=== PATIENT | female | born 1965 | race Caucasian/White ===

== ENCOUNTER → 2016-05-14 | Day surgery (SDC) | payer BC, OTHER ==
[~2016-05-14] MED LIST: ALPRAZolam 0.25 MG TAB ONE; BACITRACIN OINT 1 EACH PACKET TOPICAL ONE; LIDOCAINE 1% INJ 10MG/ML (20 ML MDV) ONE; SODIUM BICARB 4% 5 ML VIAL (0.48 MEQ/ML) ONE
--- NOTE | 2016-05-14 09:11 | PCN ---
DATE OF PROCEDURE: The patient is a 50-year-old white female who presents with a mammographic abnormality in the left breast. The patient was taken to the stereotactic unit and the area of concern was localized. The breast was prepped using Betadine, 1% lidocaine was used to anesthetize the area of the skin. The needle was driven to correct coordinates. Multiple core biopsies were obtained. The marking clip was then left behind. The patient tolerated the procedure in stable condition. Specimen sent to pathology.
--- NOTE | 2016-05-14 09:35 | MM ---
EXAMINATION TYPE: MG stereo VAD BX LT DATE OF EXAM: 05/14/2016 8:53 AM COMPARISON: Outside mammograms April 16, 2016 and older studies CLINICAL HISTORY: Abnormal outside mammogram and ultrasound TECHNIQUE: Stereotactic guided core biopsy of left breast with clip placement and follow-up two-view mammogram. FINDINGS: The procedure of stereotactic guided core biopsy was explained to the patient. Benefits, alternatives, and risks were discussed. An informed consent was then obtained. [facility]. Shortness pathway was cranial approach. I performed the localization, then surgeon, Dr. Mckinnon performed the remainder of the procedure. A vacuum assisted biopsy gun was used to obtain multiple core samples. The patient tolerated the procedure well without any immediate complication. The patient was kept in the radiology department for short stay after the procedure and then discharged home in stable condition. Post biopsy mammogram shows the clip to appear in satisfactory position relative to the targeted area of concern persistent distortion on the preprocedure images. IMPRESSION: SUCCESSFUL, UNCOMPLICATED STEREOTACTIC GUIDED CORE BIOPSY OF AREA OF CONCERN IN THE LEFT BREAST, FULL PATHOLOGY RESULTS TO FOLLOW. Intermediate to high index of suspicion noted at time of procedure. It is noted nonsimple cyst on ultrasound report 12:00 position may not definitively correlate with area of mammogram concern, consider rescanning this level. 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 SEE SURGICAL PATHOLOGY CANCER CASE SUMMARY. Recommendation Surgical consult of the left breast. MTDD
== END | disposition home or self-care (01) ==
LOC: RADMAMWWP 07:10
PROVIDERS: ATTEND Surgery
DX: D05.12 Intraductal carcinoma in situ of left breast (principal); R92.1 Mammographic calcification found on diagnostic imaging of breast
CPT/HCPCS: 88305; 88342; 88341; 19081; A4648; J2001

== ENCOUNTER 2016-06-08 11:34 | Day surgery (SDC) | payer OTHER ==
[2016-06-04 11:45] VITALS: BMI 37.5
[~2016-06-08 11:34] MED LIST changes: -ALPRAZolam 0.25 MG TAB ONE; +ALPRAZolam 0.5 MG TAB PO PRN; -BACITRACIN OINT 1 EACH PACKET TOPICAL ONE; +DEXAMETHASONE SOD PHOSPHATE 10 MG/ML 1 ML VIAL IV ONE; +HEPARIN SODIUM,PORCINE 5,000 UNIT/ML 1 ML VIAL SQ ONE; +HYDROmorphone 1 MG/ML 1 ML SYRINGE IVP PRN; +LACTATED RINGERS 1,000 ML IV SCH; +LIDOCAINE 1% 20 ML VIAL (10MG/ML) FOR IV START INTRADERMA PRN; -LIDOCAINE 1% INJ 10MG/ML (20 ML MDV) ONE; +MIDAZOLAM 2 MG/2 ML VIAL IV PRN; +Pre Op ABX Message 1 EACH MISC MISCELLANE ONE; +SCOPOLAMINE 1.5MG/72HR PATCH TRANSDERM ONE; -SODIUM BICARB 4% 5 ML VIAL (0.48 MEQ/ML) ONE
[2016-06-08] MEDS ORDERED: SODIUM BICARB 4% 5 ML VIAL (0.48 MEQ/ML) MISCELLANE ONE (12:55)
[2016-06-08] MEDS ORDERED: LIDOCAINE 1% INJ 10MG/ML (20 ML MDV) SQ ONE ×2 (12:55→17:45)
[2016-06-08 13:26] VITALS: TEMP 98
--- NOTE | 2016-06-08 13:34 | NM ---
EXAMINATION TYPE: NM sentinel node injection DATE OF EXAM: 06/08/2016 1:27 PM COMPARISON: NONE HISTORY: Left breast cancer TECHNIQUE AND FINDINGS: The procedure of sentinel lymph node injection was explained to the patient. The benefits, alternatives, and risks were discussed. An informed consent was then obtained. Overlying skin is cleaned with sterile alcohol. Lidocaine buffered with bicarbonate was used as anes thetic into the skin and subcutaneous tissue surrounding the nipple. Following this, 549 uCi Tc 99m Filtered Sulfur Colloid was injected into 4 equivalent doses at 12, 3, 6, and 9:00 position surroundi ng the nipple intradermally. The injection sites were massaged by nuclear physics teacher for 10 minutes after injection. T he patient tolerated the procedure well without any immediate complication. The patient was kept in the radiology department for short stay after the procedure and then taken to surgery for surgical pr ocedure what is presumed intraoperative gamma probe will be used for sentinel lymph node detection. IMPRESSION: Left breast radiotracer injection for sentinel node localization as above.
[2016-06-08] MEDS: ONDANSETRON 4 MG/2 ML VIAL IVP ONE ×2 (14:39→19:32)
[2016-06-08] MEDS ORDERED: HEPARIN SODIUM,PORCINE 5,000 UNIT/ML 1 ML VIAL SQ ONE (15:21)
[2016-06-08] MEDS ORDERED: LIDOCAINE 1% INJ 10MG/ML (20 ML MDV) ONE ×2 (15:39→17:12)
[2016-06-08] MEDS ORDERED: GLYCOPYRROLATE 0.2 MG/ML 2 ML VIAL ONE ×2 (15:39→17:12)
[2016-06-08] MEDS ORDERED: fentaNYL (PF) 50 MCG/ML 2 ML AMP ONE ×2 (15:39→17:12)
[2016-06-08] MEDS ORDERED: SUCCINYLCHOLINE CHLORIDE 100 MG/5 ML SYR IV ONE (15:39)
[2016-06-08] MEDS ORDERED: PROPOFOL 10 MG/ML 20 ML VIAL IV ONE ×2 (15:39→17:12)
[2016-06-08] MEDS ORDERED: MIDAZOLAM 2 MG/2 ML VIAL ONE ×2 (15:39→17:12)
[2016-06-08] MEDS ORDERED: SUCCINYLCHOLINE CHLORIDE VIAL 200 MG/10 ML VIAL IV ONE (17:12)
[2016-06-08] MEDS ORDERED: NEOSTIGMINE 1 MG/ML 10 ML VIAL ONE (17:12)
[2016-06-08] MEDS ORDERED: SODIUM CHLORIDE 0.9% 50 ML with ceFAZolin 2,000 MG IV ONE ×2 (17:12)
[2016-06-08] MEDS ORDERED: ROCURONIUM BROMIDE 10 MG/ML 10 ML VIAL IV ONE (17:12)
[2016-06-08] MEDS ORDERED: METHYLENE BLUE 10 MG/ML 1 ML VIAL MISCELLANE ONE (17:45)
[2016-06-08] MEDS ORDERED: LACTATED RINGERS 1,000 ML IV ONE (18:49)
--- NOTE | 2016-06-08 19:04 | P.OP ---
Date of Procedure: 06/08/16 Preoperative Diagnosis: Left breast ductal carcinoma in situ Postoperative Diagnosis: Same Procedure(s) Performed: Lymphatic mapping of the left axilla, sentinel node biopsy, lumpectomy insertion of Biozorb Oncoplastic tissue closure, Anesthesia: GETA Surgeon: Asia Mckinnon Estimated Blood Loss (ml): 20 IV fluids (ml): 500 Pathology: other (Lumpectomy specimen, sentinel lymph nodes) Condition: stable Disposition: PACU Indications for Procedure: Biopsy positive for DCIS left breast Operative Findings: Palpable adenopathy, dense breast tissue, area of clip clearly identified on radiographic of specimen Description of Procedure: Patient was taken to the operating room and following induction of general anesthesia the left breast and axilla were prepped and draped in a sterile fashion. 5 mL of half-strength methylene blue was injected in the periareolar area and the breast was massaged. Following this the left breast and axilla were prepped and draped in a sterile fashion. An incision was made and carried down to the hook of the wire. Surrounding tissue was excised. The specimen was painted and radiograph of the specimen revealed that the area of concern had been removed. The posterior dissection was carried down to the pectoralis major muscle. This was reviewed in the operating room. After assured that hemostasis was attained the wound was well irrigated. Gowns and gloves were changed and the axilla was approached. The neoprobe was used to help identify the incision was to be made. Incision was made down to the area for a palpable node was identified. This node was not blue and the 10 second radioactive count was approximately 26. Further evaluation and the axilla revealed 2 other palpable nodes which were somewhat enlarged but no other radioactive nodes of concern. No blue nodes were identified. The background count of the axilla was 1. The lymph nodes were sent for permanent section after discussion with pathology. After assured that hemostasis was attained a BOYD drain was placed. The deep tissues were closed using 3-0 Vicryl suture. The skin was closed using a 4-0 Monocryl. The area of the lumpectomy was addressed. Hyperplastic tissue manipulation was utilized to help close the defect. The defect itself was approximately 2 cm. After we were assured that hemostasis was attained and the defect had been closed appropriately sizers were utilized to determine was sized BioSorb should be used. A 4 x 3 cm BioSorb was chosen. This was placed and secured in place using 3-0 Vicryl suture. The deep tissues were closed using 3-0 Vicryl. The skin was closed using 4 -0 Monocryl. Mastisol and Steri-Strips were applied. The patient tolerated the procedure in stable condition. All instrument and sponge counts were correct at the end of the case.
--- NOTE | 2016-06-08 19:06 | P.DS ---
Providers Attending physician: Asia Mckinnon Primary care physician: Camelia Obrien Plan - Discharge Summary Discharge Medication List amLODIPine BESYLATE/BENAZEPRIL [Amlodipine-Benazepril 5-10 mg] 1 tab PO DAILY [History] Follow up Appointment(s)/Referral(s): Asia Mckinnon MD [STAFF PHYSICIAN] - 3 Days Activity/Diet/Wound Care/Special Instructions: teach drain care do nto drive until seen by DR. Higgins may shower in 48 hours Discharge Disposition: HOME SELF-CARE
[2016-06-08 19:20] VITALS: RESP 16
[2016-06-08] MEDS ORDERED: HYDROcodone/APAP 5-325MG 1 EACH TAB PO ONE (20:18)
[2016-06-08 21:26] VITALS: BP 126/78; PULSE 96
--- NOTE | 2016-06-10 13:51 | MM ---
EXAMINATION TYPE: MG pre op needle loc LT, MG surgical specimen LT DATE OF EXAM: 06/08/2016 1:15 PM COMPARISON: Prior exam 14 May 2016 CLINICAL HISTORY: Left breast cancer TECHNIQUE: Needle localization with wire placement and surgical excision of area of concern in the left breast. FINDINGS: The procedure of needle localization with wire placement and than surgical excision was explained to the patient. Benefits, alternatives, and risks were discussed. An informed consent was then obtained. The shortest pathway for procedure was chosen. The overlying skin was prepped and draped in usual sterile fashion. Lidocaine buffered with bicarbonate was used as anesthetic into the skin and subcutaneous tissue up to the level of area of concern. A 7 cm needle was used. It was placed via a cephalad to caudal approach under mammographic guidance. Subsequent 90 degrees mammogram show the needle to be in satisfactory position relative to the targeted area. At this point, wire was placed and the needle was withdrawn. The wire was fixed to patient's skin. Images were marked for surgeon. The patient tolerated the procedure well without any immediate complication. The patient was kept in the radiology department for short stay after the procedure and then taken to surgery for surgical excision. Targeted clip and wire are identified in specimen mammogram. The patient was kept in hospital for short stay after the procedure and then discharged home in stable condition. IMPRESSION: Successful, uncomplicated needle localization with wire placement and surgical excision of targeted clip in the left breast, full pathology results to follow. Pathology Results: Malignant A. LEFT SENTINEL NODE, BIOPSY: LYMPH NODE WITH EXTENSIVE FAT REPLACEMENT, NEGATIVE FOR METASTASIS. CK7 AND DANTE IMMUNOPEROXIDASE STAINS ARE CONFIRMATORY ( CONTROLS APPROPRIATE). B. LEFT AXILLARY TISSUE: BENIGN FIBROADIPOSE TISSUE. NO LYMPH NODE IDENTIFIED. C. LEFT AXILLARY NODE #1, BIOPSY: LYMPH NODE WITH EXTENSIVE FAT REPLACEMENT, NEGATIVE FOR METASTASIS. D. LEFT AXILLARY NODE #2, BIOPSY: TWO LYMPH NODES WITH EXTENSIVE FAT REPLACEMENT , NEGATIVE FOR METASTASIS. E. BREAST, LEFT, LUMPECTOMY: DUCTAL CARCINOMA IN SITU (DCIS), MARGINS NEGATIVE. ATYPICAL PAPILLOMA AND FIBROCYSTIC CHANGES. SEE SURGICAL PATHOLOGY CANCER CASE SUMMARY. Recommendation Surgical consult of the left breast. LUIS
== END 2016-06-08 21:24 | disposition home or self-care (01) ==
LOC: OR 11:34
PROVIDERS: ATTEND Surgery
DX: D05.82 Other specified type of carcinoma in situ of left breast (principal); I10 Essential (primary) hypertension; E66.9 Obesity, unspecified; Z68.37 Body mass index [BMI] 37.0-37.9, adult; Z79.899 Other long term (current) drug therapy
CPT/HCPCS: 76098; 19281; 38792; 19301; 38500; 15777; C1713; A9541; J2250; J0330; J1644; J1100; J2710; J2405; J2001; Q9968; J3010; J0690; J2704; 88305; 88307; 88341; 88342

== ENCOUNTER → 2017-09-28 | Outpatient (CLI) | payer MEDICAID | END | disposition home or self-care (01) | LOC: LABWHC1 13:47 | PROVIDERS: ATTEND Otolaryngology | DX: J30.89 Other allergic rhinitis (principal) | CPT/HCPCS: 36415; 86001 ==

== ENCOUNTER → 2018-03-15 | Outpatient (CLI) | payer MEDICAID ==
--- NOTE | 2018-03-15 10:05 | MM ---
Reason for exam: additional evaluation requested from prior study. Last mammogram was performed 1 year ago. History: Patient is postmenopausal and has history of breast cancer at age 50. Family history of breast cancer in mother at age 60 and breast cancer in grandmother. Malignant MG pre op needle loc LT of the left breast, June 10, 2016. Malignant MG stereo VAD BX LT of the left breast, May 14, 2016. Lumpectomy of the left breast. Radiation therapy of the left breast. Taking antineoplastic beginning at age 50. Physical Findings: Nurse Summary: 1.5cm nodule in the left breast at 12 o'clock (nurse dw). MG 3D Diag Mammo W/Cad [facility] Bilateral CC and MLO view(s) were taken. XCCL view(s) were taken of the left breast. Prior study comparison: March 14, 2017, bilateral MG 3d diag mammo w/cad [facility]. April 09, 2016, mammogram. The breast tissue is heterogeneously dense. This may lower the sensitivity of mammography. Stable benign calcifications. Stable post lumpectomy changes. Palpable area corresponds to biopzorb clips. No significant new findings when compared with previous films. These results were verbally communicated with the patient and result sheet given to the patient on 03/15/18. ASSESSMENT: Benign, BI-RAD 2 RECOMMENDATION: Follow-up diagnostic mammogram of both breasts in 1 year. Manage patient on a clinical basis.
== END ==
LOC: RADMAMWWP 08:46
PROVIDERS: ATTEND Radiology Radiation Oncology
DX: D05.12 Intraductal carcinoma in situ of left breast (principal); Z85.3 Personal history of malignant neoplasm of breast
CPT/HCPCS: 77062; 77066

== ENCOUNTER → 2019-03-16 | Outpatient (CLI) | payer MEDICAID ==
--- NOTE | 2019-03-16 09:51 | MM ---
Reason for exam: additional evaluation requested from prior study. Last mammogram was performed 1 year ago. History: Patient is postmenopausal and has history of breast cancer at age 50. Family history of breast cancer in mother at age 60 and breast cancer in grandmother. Malignant MG pre op needle loc LT of the left breast, June 10, 2016. Malignant MG stereo VAD BX LT of the left breast, May 14, 2016. Lumpectomy of the left breast. Radiation therapy of the left breast. Taking antineoplastic beginning at age 50. Physical Findings: Nurse did not find any significant physical abnormalities on exam. MG 3D Diag Mammo W/Cad [facility] Bilateral CC and MLO view(s) were taken. XCCL view(s) were taken of the left breast. Prior study comparison: March 15, 2018, bilateral MG 3d diag mammo w/cad [facility]. March 14, 2017, bilateral MG 3d diag mammo w/cad [facility]. The breast tissue is heterogeneously dense. This may lower the sensitivity of mammography. Benign appearing bilateral calcifications. No suspicious abnormality. Left post therapy change. These results were verbally communicated with the patient and result sheet given to the patient on 03/16/19. ASSESSMENT: Benign, BI-RAD 2 RECOMMENDATION: Follow-up diagnostic mammogram of both breasts in 1 year.
== END | disposition home or self-care (01) ==
LOC: RADMAMWWP 08:48
PROVIDERS: ATTEND Radiology Radiation Oncology
DX: D05.12 Intraductal carcinoma in situ of left breast (principal)
CPT/HCPCS: 77062; 77066

== ENCOUNTER → 2019-10-03 | Outpatient (CLI) | payer MEDICAID ==
--- NOTE | 2019-10-04 13:42 | BD ---
EXAMINATION TYPE: Axial Bone Density DATE OF EXAM: 10/03/2019 COMPARISON: NONE CLINICAL HISTORY: Height: 63 Weight: 203.8 FRAX RISK QUESTIONS: Alcohol (3 or more units per day): no Family History (Parent hip fracture): no Glucocorticoids (More than 3mos): no (Ex: prednisone, prednisolone, methylprednisolone, dexamethasone, and hydrocortisone). History of Fracture in Adulthood: no Secondary Osteoporosis: 1. Type 1 Diabetes: no 2. Hyperthyroidism: no 3. Menopause before 45: yes 4. Malnutrition: no 5. Chronic liver disease: no Rheumatoid Arthritis: no Current Tobacco Use: no RISK FACTORS HISTORY OF: Family History of Osteoporosis: no Active: sometimes Diet low in dairy products/other sources of calcium: yes Postmenopausal woman: 1999 hysterectomy Take estrogen and/or progesterone medications: no Lost more than 2 inches in height since high school: no MEDICATIONS: bp meds, Arimidex Additional History: EXAM MEASUREMENTS: Bone mineral densitometry was performed using the [email or web address] System. Bone mineral density as measured about the Lumbar spine is: ----- L1-L4(G/cm2): 0.775 T Score Values are as follows: ----- L2: -1.8 ----- L3: -3.5 ----- L4: -5.0 ----- L1-L4: -3.4 Bone mineral density has: increased 9.2 % since study of: 07.27.2017 Bone mineral density about the R hip (g/cm2): 0.802 Bone mineral density about the L hip (g/cm2): 0.785 T Score values are as follows: -----R Neck: -1.7 -----L Neck: -1.8 -----R Total: -1.3 -----L Total: -1.6 Bone mineral density has: increased 3.9 % since study of: 07.27.2017 IMPRESSION: Osteoporosis (T Score less than -2.5). There is increased fracture risk and therapy is usually indicated based on age. Re-Screen 1-2 years. NOTE: T-SCORE=SD OF THE YOUNG ADULT MEAN.
== END | disposition home or self-care (01) ==
LOC: RADBDWWP 08:35
PROVIDERS: ATTEND Internal Medicine Hematology & Oncology
DX: M81.0 Age-related osteoporosis without current pathological fracture (principal)
CPT/HCPCS: 77080

== ENCOUNTER → 2020-03-21 | Outpatient (CLI) | payer MEDICAID ==
--- NOTE | 2020-03-21 11:41 | MM ---
Reason for exam: additional evaluation requested from prior study. Last mammogram was performed 1 year ago. History: Patient is postmenopausal and has history of breast cancer at age 50. Family history of breast cancer in mother at age 60 and breast cancer in grandmother. Malignant MG pre op needle loc LT of the left breast, June 10, 2016. Malignant MG stereo VAD BX LT of the left breast, May 14, 2016. Lumpectomy of the left breast. Radiation therapy of the left breast. Taking antineoplastic beginning at age 50. Physical Findings: Nurse did not find any significant physical abnormalities on exam. MG 3D Diag Mammo W/Cad [facility] Bilateral CC and MLO view(s) were taken. XCCL view(s) were taken of the left breast. Prior study comparison: March 16, 2019, bilateral MG 3d diag mammo w/cad [facility]. March 15, 2018, bilateral MG 3d diag mammo w/cad [facility]. Finding: There is a 6 mm equal density (isodense), indistinct round mass in the subareolar position of the left breast, compresses normally, persistent on XCCL. Post surgical changes left upper outer quadrant. New finding since March 16, 2019 and March 15, 2018. These results were verbally communicated with the patient and result sheet given to the patient on 03/21/20. ASSESSMENT: Probably benign, BI-RAD 3 RECOMMENDATION: Follow-up diagnostic mammogram of the left breast in 6 months.
== END | disposition home or self-care (01) ==
LOC: RADMAMWWP 09:51
PROVIDERS: ATTEND Radiology Radiation Oncology
DX: D05.12 Intraductal carcinoma in situ of left breast (principal); Z17.0 Estrogen receptor positive status [ER+]
CPT/HCPCS: 77062; 77066

== ENCOUNTER → 2020-09-24 | Outpatient (CLI) | payer MEDICAID ==
--- NOTE | 2020-09-25 14:13 | MM ---
Reason for exam: follow-up at short interval from prior study. Last mammogram was performed 6 months ago. History: Patient is postmenopausal and has history of breast cancer at age 50. Family history of breast cancer in mother at age 60 and breast cancer in grandmother. Malignant MG pre op needle loc LT of the left breast, June 10, 2016. Malignant MG stereo VAD BX LT of the left breast, May 14, 2016. Lumpectomy of the left breast. Radiation therapy of the left breast. Taking antineoplastic for 3 years beginning at age 50. Physical Findings: Nurse did not find any significant physical abnormalities on exam. MG 3D Diag Mammo W/Cad LT CC and MLO view(s) were taken of the left breast. Prior study comparison: March 21, 2020, bilateral MG 3d diag mammo w/cad [facility]. March 16, 2019, bilateral MG 3d diag mammo w/cad [facility]. The breast tissue is heterogeneously dense. This may lower the sensitivity of mammography. There is an asymmetry left subareolar slightly lower, slightly medial region not changed since 2018. These results were verbally communicated with the patient and result sheet given to the patient on 09/24/20. ASSESSMENT: Benign, BI-RAD 2 RECOMMENDATION: Routine screening mammogram of both breasts in 6 months. Back on schedule for March 2021.
== END | disposition home or self-care (01) ==
LOC: RADMAMWWP 10:58
PROVIDERS: ATTEND Radiology Radiation Oncology
DX: R92.2 Inconclusive mammogram (principal); Z78.0 Asymptomatic menopausal state; Z80.3 Family history of malignant neoplasm of breast; Z85.3 Personal history of malignant neoplasm of breast
CPT/HCPCS: 77061; 77065

== ENCOUNTER → 2021-01-12 | Outpatient (CLI) | payer MEDICAID ==
--- NOTE | 2021-01-12 10:23 | CT ---
EXAMINATION TYPE: CT heart w calcium score DATE OF EXAM: 01/12/2021 COMPARISON: None. HISTORY: Screening for cardiovascular disorder. 213.9. Family history of ischemic heart disease. CT DLP: 67.20 mGycm Automated exposure control for dose reduction was used. CT CALCIUM SCORING Coronary calcium is a marker for plaque (fatty deposits) in a blood vessel or atherosclerosis (harden ing of the arteries). The presence and amount of calcium detected in a coronary artery by the CT sca n, indicates the presence and amount of atherosclerotic plaque. These calcium deposits appear years before the development of heart disease symptoms such as chest pain and shortness of breath. A calcium score is computed for each of the coronary arteries based upon the volume and density of th e calcium deposits. This can be referred to as your calcified plaque burden. It does not correspond directly to the percentage of narrowing in the artery but does correlate with the severity of the un derlying coronary atherosclerosis. PROCEDURE TECHNIQUE - Prospective Gating was used. Slice thickness: 3mm. Density threshold (HU): 130, Pixel threshold: 3, Algorithm: discrete. RESULTS Region: LM Calcium Score (Agatston): 0 Volume (mm3): 0 Mass (g): 0 Region: RCA Calcium Score (Agatston): 1.47 Volume (mm3): 4.42 Mass (g): 0 Region: LAD Calcium Score (Agatston): 0 Volume (mm3): 0 Mass (g): 0 Region: CX Calcium Score (Agatston): 0 Volume (mm3): 0 Mass (g): 0 Region: PDA Calcium Score (Agatston): 0 Volume (mm3): 0 Mass (g): 0 Total: Calcium Score (Agatston): 1.47 Visualized lungs are clear. Some ectasia to the ascending aorta up to 3.7 cm axial image 11 otherwise no suspicious abnormality. Left axillary surgical clips noted on localizer. IMPRESSION: Calcium Score: 1-10 Implication: Minimal identifiable plaque Risk of Coronary Artery Disease: Very low, generally less than 10%. CALCIUM SCORE IMPLICATION RISK OF C ORONARY ARTERY DISEASE 0 No identifiable plaque Very low, generally less than 5% 1-10 Minimal identifiable plaque Very unlikely, less than 10% 11-100 Definite, at least mild atherosclerotic plaque Mild or m inimal coronary narrowings likely 101-400 Definite, at least moderate atherosclerotic plaque Mild coronary ar karin disease highly likely, significant narrowing possible 401 or Higher Extensive atherosclerotic plaque High lik elihood of at least one significant coronary narrowing
== END | disposition home or self-care (01) ==
LOC: RADCTMAIN 09:12
PROVIDERS: ATTEND Family Medicine
DX: Z13.6 Encounter for screening for cardiovascular disorders (principal); I25.10 Atherosclerotic heart disease of native coronary artery without angina pectoris; Z82.49 Family history of ischemic heart disease and other diseases of the circulatory system
CPT/HCPCS: 75571

== ENCOUNTER → 2021-03-30 | Outpatient (CLI) | payer MEDICAID ==
--- NOTE | 2021-03-31 09:21 | MM ---
Reason for exam: additional evaluation requested from prior study. Last mammogram was performed 6 months ago. History: Patient is postmenopausal and has history of breast cancer at age 50. Family history of breast cancer in mother at age 60 and breast cancer in grandmother. Malignant MG pre op needle loc LT of the left breast, June 10, 2016. Malignant MG stereo VAD BX LT of the left breast, May 14, 2016. Lumpectomy of the left breast. Radiation therapy of the left breast. Taking antineoplastic for 3 years beginning at age 50. Physical Findings: Nurse did not find any significant physical abnormalities on exam. MG 3D Diag Mammo W/Cad [facility] Bilateral CC and MLO view(s) were taken. XCCL view(s) were taken of the left breast. Prior study comparison: September 24, 2020, left breast MG 3d diag mammo w/cad LT. March 21, 2020, bilateral MG 3d diag mammo w/cad [facility]. The breast tissue is heterogeneously dense. This may lower the sensitivity of mammography. Finding #1: Architectural distortion in the left breast consistent with known excision treatment changes. Finding #2: There are typically benign round calcifications in both breasts. There is no discrete abnormality. These results were verbally communicated with the patient and result sheet given to the patient on 03/30/21. ASSESSMENT: Benign, BI-RAD 2 RECOMMENDATION: Follow-up diagnostic mammogram of both breasts in 1 year.
== END | disposition home or self-care (01) ==
LOC: RADMAMWWP 15:06
PROVIDERS: ATTEND Radiology Radiation Oncology
DX: R92.8 Other abnormal and inconclusive findings on diagnostic imaging of breast (principal); Z78.0 Asymptomatic menopausal state; Z85.3 Personal history of malignant neoplasm of breast; Z80.3 Family history of malignant neoplasm of breast
CPT/HCPCS: 77062; 77066

== ENCOUNTER → 2021-10-08 | Outpatient (CLI) | payer MEDICAID ==
--- NOTE | 2021-10-09 15:03 | BD ---
EXAMINATION TYPE: Axial Bone Density DATE OF EXAM: 10/08/2021 COMPARISON: NONE CLINICAL HISTORY: 55 years year old Female. ICD-10 CODE: D05.12 DCIS OF BREAST Height: 61 Weight: 207.5 FRAX RISK QUESTIONS: Alcohol (3 or more units per day): no Family History (Parent hip fracture): no Glucocorticoids (More than 3mos): no (Ex: prednisone, prednisolone, methylprednisolone, dexamethasone, and hydrocortisone). History of Fracture in Adulthood: no Secondary Osteoporosis: 1. Type 1 Diabetes: no 2. Hyperthyroidism: no 3. Menopause before 45: yes 4. Malnutrition: no 5. Chronic liver disease: no Rheumatoid Arthritis: no Current Tobacco Use: no RISK FACTORS HISTORY OF: Surgery to Spine/Hip(right/left)/Wrist (right/left): no Family History of Osteoporosis: no Active: no Diet low in dairy products/other sources of calcium: yes Postmenopausal woman: yes Lost more than 2 inches in height since high school: no MEDICATIONS: Arimidex Additional History: EXAM MEASUREMENTS: Bone mineral densitometry was performed using the [employer] System. Bone mineral density as measured about the Lumbar spine is: ----- L1-L4(G/cm2): 0.769 T Score Values are as follows: ----- L1: -2.6 ----- L2: -2.2 ----- L3: -4.0 ----- L4: -4.7 ----- L1-L4: -3.4 Bone mineral density has: decreased -3.4 % since study of: 10.03.2019 Bone mineral density about the R hip (g/cm2): 0.780 Bone mineral density about the L hip (g/cm2): 0.756 T Score values are as follows: -----R Neck: -1.9 -----L Neck: -2.0 -----R Total: -1.6 -----L Total: -1.6 Bone mineral density has: decreased -2.2 % since study of: 10.03.2019 FRAX%s: The graph provided illustrates a 6.6% chance for a major osteoporotic fx and a 0.8% chance fo r the hips probability for fx in 10 years time. IMPRESSION: Osteoporosis (T Score less than -2.5). There is increased fracture risk and therapy is usually indicated based on age. Re-Screen 1-2 years. NOTE: T-SCORE=SD OF THE YOUNG ADULT MEAN.
== END | disposition home or self-care (01) ==
LOC: RADBDWWP 14:17
PROVIDERS: ATTEND Internal Medicine Hematology & Oncology
DX: M81.0 Age-related osteoporosis without current pathological fracture (principal)
CPT/HCPCS: 77080

== ENCOUNTER → 2021-11-02 | Outpatient (CLI) | payer MEDICAID ==
[~2021-11-02] MED LIST changes: -ALPRAZolam 0.5 MG TAB PO PRN; +DENOSUMAB 60 MG/ML 1 ML SYRINGE SQ NR; -DEXAMETHASONE SOD PHOSPHATE 10 MG/ML 1 ML VIAL IV ONE; -HEPARIN SODIUM,PORCINE 5,000 UNIT/ML 1 ML VIAL SQ ONE; -HYDROmorphone 1 MG/ML 1 ML SYRINGE IVP PRN; -LACTATED RINGERS 1,000 ML IV SCH; -LIDOCAINE 1% 20 ML VIAL (10MG/ML) FOR IV START INTRADERMA PRN; -MIDAZOLAM 2 MG/2 ML VIAL IV PRN; -Pre Op ABX Message 1 EACH MISC MISCELLANE ONE; -SCOPOLAMINE 1.5MG/72HR PATCH TRANSDERM ONE
[2021-11-02 09:10] VITALS: BP 144/85; PULSE 105; RESP 16; TEMP 98.1
== END ==
LOC: PROCWHC3 09:01
PROVIDERS: ATTEND Internal Medicine Hematology & Oncology
DX: M81.0 Age-related osteoporosis without current pathological fracture (principal)
CPT/HCPCS: 96372; J0897

== ENCOUNTER → 2022-04-05 | Outpatient (CLI) | payer MEDICAID ==
--- NOTE | 2022-04-05 10:11 | MM ---
Reason for Exam: Additional evaluation requested from prior study. Last screening mammogram was performed 12 month(s) ago. Patient History: Hysterectomy at age 42. Postmenopausal. Breast cancer, left, age 50. Lumpectomy on the Left side. 06/10/2016, Malignant Core Biopsy on the left side. 05/14/2016, Malignant Core Biopsy on the left side. Radiation Therapy, left. Maternal grandmother had breast cancer. Mother had breast cancer, age 60. Tissue Density: The breast tissue is heterogeneously dense. This may lower the sensitivity of mammography. Findings: Analyzed By CAD. Postsurgical changes to the left breast and postbiopsy changes to the right breast. No suspicious masses, calcifications or distortions identified. Overall Assessment: Benign, BI-RAD 2 Management: Screening Mammogram of both breasts in 1 year. A clinical breast exam by your physician is recommended on an annual basis and results should be correlated with mammographic findings. This exam should not preclude additional follow-up of suspicious palpable abnormalities. Results were given to the patient verbally at the time of exam. Electronically signed and approved by: David Reagan DO
== END | disposition home or self-care (01) ==
LOC: RADMAMWWP 09:34
PROVIDERS: ATTEND Family Medicine
DX: Z85.3 Personal history of malignant neoplasm of breast (principal); Z78.0 Asymptomatic menopausal state; Z80.3 Family history of malignant neoplasm of breast
CPT/HCPCS: 77062; 77066

== ENCOUNTER → 2022-09-13 | Outpatient (CLI) | payer MEDICAID ==
[2022-09-13 11:23] VITALS: BP 109/75; PULSE 92; RESP 16; TEMP 97.5
== END ==
LOC: PROCWHC3 11:12
PROVIDERS: ATTEND Internal Medicine Hematology & Oncology
DX: M81.0 Age-related osteoporosis without current pathological fracture (principal)
CPT/HCPCS: 96372; J0897

== ENCOUNTER → 2023-04-06 | Outpatient (CLI) | payer MEDICAID ==
--- NOTE | 2023-04-06 11:40 | MM ---
Reason for Exam: Hx of breast cancer, conservation therapy. Last screening mammogram was performed 12 month(s) ago. Patient History: Hysterectomy at age 42. Postmenopausal. Breast cancer, left, age 50. Lumpectomy on the Left side. 06/10/2016, Malignant Core Biopsy on the left side. 05/14/2016, Malignant Core Biopsy on the left side. Radiation Therapy, left. Maternal grandmother had breast cancer. Mother had breast cancer, age 60. Tissue Density: There are scattered fibroglandular densities. Findings: Analyzed By CAD. There is no suspicious group of microcalcifications or new suspicious mass. Bilateral biopsy clips in bilateral benign-appearing calcifications. Left breast surgical clips. No new suspicious masses, calcifications or distortions. Overall Assessment: Benign, BI-RAD 2 Management: Diagnostic Mammogram of both breasts in 1 year. Results were given to the patient verbally at the time of exam. Patient should continue monthly self-breast exams. A clinical breast exam by your physician is recommended on an annual basis. This exam should not preclude additional follow-up of suspicious palpable abnormalities. Note on Seble scores and lifetime risk: 1. A Seble score greater than 3% is considered moderate risk. If this is the case, consider specialist referral to assess eligibility for a risk reducing agent. 2. If overall lifetime risk for the development of breast cancer is 20% or higher, the patient may qualify for future screening with alternating mammogram and breast MRI. Electronically signed and approved by: David Reagan DO
== END | disposition home or self-care (01) ==
LOC: RADMAMWWP 11:01
PROVIDERS: ATTEND Radiology Radiation Oncology
DX: Z08 Encounter for follow-up examination after completed treatment for malignant neoplasm (principal); R92.323 Mammographic fibroglandular density, bilateral breasts; Z17.0 Estrogen receptor positive status [ER+]; Z80.3 Family history of malignant neoplasm of breast; Z86.000 Personal history of in-situ neoplasm of breast; Z78.0 Asymptomatic menopausal state; Z85.3 Personal history of malignant neoplasm of breast
CPT/HCPCS: 77062; 77066

== ENCOUNTER → 2023-10-10 | Outpatient (CLI) | payer OTHER ==
--- NOTE | 2023-10-10 12:51 | BD ---
EXAMINATION TYPE: Axial Bone Density DATE OF EXAM: 10/10/2023 CLINICAL HISTORY: 57 years old Female. ICD-10 CODE: M85.88 TH DISRD OF BONE DENSITY AND STRUCTURE, O TH Height: 61 Weight: 186 FRAX RISK QUESTIONS: Alcohol (3 or more units per day): no Family History (Parent hip fracture): no Glucocorticoids (More than 3mos): no (Ex: prednisone, prednisolone, methylprednisolone, dexamethasone, and hydrocortisone). History of Fracture in Adulthood: no Secondary Osteoporosis: 1. Type 1 Diabetes: no 2. Hyperthyroidism: no 3. Menopause before 45: yes 4. Malnutrition: no 5. Chronic liver disease: no Rheumatoid Arthritis: no Current Tobacco Use: no RISK FACTORS HISTORY OF: Surgery to Spine/Hip(right/left)/Wrist (right/left): no EXAM MEASUREMENTS: Bone mineral densitometry was performed using the [employer]. Bone mineral density as measured about the Lumbar spine is: ----- L1-L4(G/cm2): 0.725 T Score Values are as follows: ----- L1: -3.1 ----- L2: -3.5 ----- L3: -3.9 ----- L4: -4.7 ----- L1-L4: -3.8 Z Score Values are as follows: ----- L1: -2.9 ----- L2: -3.3 ----- L3: -3.7 ----- L4: -4.5 ----- L1-L4: -3.6 Bone mineral density has: decreased -5.7 % since study of: 10.08.2021 Bone mineral density about the R hip (g/cm2): 0.741 Bone mineral density about the L hip (g/cm2): 0.748 T Score values are as follows: -----R Neck: -1.5 -----L Neck: -2.6 -----R Total: -2.1 -----L Total: -2.1 Z Score values are as follows: -----R Neck: -0.8 -----L Neck: -1.9 -----R Total: -1.9 -----L Total: -1.8 Bone mineral density has: decreased 7.8 % since study of: 6.30.2021 FRAX%s: The graph provided illustrates a 9.3% chance for a major osteoporotic fx and a 1.8% chance fo r the hips probability for fx in 10 years time. IMPRESSION: Osteoporosis (T Score less than -2.5). There is increased fracture risk and therapy is usually indicated based on age. Re-Screen 1-2 years. NOTE: T-SCORE=SD OF THE YOUNG ADULT MEAN.
== END | disposition home or self-care (01) ==
LOC: RADBDWWP 11:22
PROVIDERS: ATTEND Internal Medicine Hematology & Oncology
DX: M85.89 Other specified disorders of bone density and structure, multiple sites (principal); M81.0 Age-related osteoporosis without current pathological fracture; I10 Essential (primary) hypertension; D05.12 Intraductal carcinoma in situ of left breast; Z78.0 Asymptomatic menopausal state
CPT/HCPCS: 77080

== ENCOUNTER → 2024-04-20 | Outpatient (CLI) | payer OTHER ==
--- NOTE | 2024-04-20 11:07 | MM ---
Reason for Exam: Hx of breast cancer, conservation therapy. Last mammogram was performed 1 year(s) and 1 month(s) ago. Patient History: Hysterectomy at age 42. Postmenopausal. Breast cancer, left, age 50. Lumpectomy on the Left side. 06/10/2016, Malignant Core Biopsy on the left side. 05/14/2016, Malignant Core Biopsy on the left side. 2017, Radiation Therapy on the left side. Radiation Therapy, left. Maternal grandmother had breast cancer. Mother had breast cancer, age 60. Tissue Density: The breasts are heterogeneously dense, which may obscure small masses. Findings: Analyzed By CAD. Left breast surgical clips. No new suspicious masses, calcifications or distortions. Overall Assessment: Benign, BI-RAD 2 Management: Screening Mammogram of both breasts in 1 year. Results were given to the patient verbally at the time of exam. Patient should continue monthly self-breast exams. A clinical breast exam by your physician is recommended on an annual basis. This exam should not preclude additional follow-up of suspicious palpable abnormalities. Note on Seble scores and lifetime risk: 1. A Seble score greater than 3% is considered moderate risk. If this is the case, consider specialist referral to assess eligibility for a risk reducing agent. 2. If overall lifetime risk for the development of breast cancer is 20% or higher, the patient may qualify for future screening with alternating mammogram and breast MRI. [facility], , 04/20/2024 11:03 AM. Electronically signed and approved by: David Reagan DO
== END | disposition home or self-care (01) ==
LOC: RADMAMWWP 10:41
PROVIDERS: ATTEND Family Medicine
DX: R92.333 Mammographic heterogeneous density, bilateral breasts (principal); Z85.3 Personal history of malignant neoplasm of breast; Z78.0 Asymptomatic menopausal state; Z80.3 Family history of malignant neoplasm of breast
CPT/HCPCS: 77062; 77066